=== PATIENT | male | born 1975 | race Caucasian/White ===

== ENCOUNTER 2017-01-22 16:33 | Emergency (ER) | payer OTHER ==
[~2017-01-22] VITALS: Ht 170.2 cm; Wt 86.6 kg
[2017-01-22] MEDS ORDERED: SODIUM CHLORIDE 0.9% 1,000 ML IV ONE (16:49)
[2017-01-22] MEDS ORDERED: ZOLP10TA PO (16:57)
[2017-01-22] MEDS ORDERED: SODIUM CHLORIDE 0.9% 1,000ML IVBOLUS ONE (17:00)
[2017-01-22] MEDS ORDERED: ONDANSETRON 2MG/ML, 2ML IVPush ONE (17:00)
[2017-01-22] MEDS ORDERED: HYDROmorphone 1 MG/ML, 1ML ONE ×2 (17:19→18:23)
[2017-01-22] MEDS ORDERED: ONDANSETRON 2MG/ML, 2ML ONE (17:20)
[2017-01-22] MEDS: HYDROmorphone 1 MG/ML, 1ML IVPush PRN ×2 (17:29→18:29)
[2017-01-22 17:36] LABS: ASPARTATE AMINO TRANSFERASE 22 U/L (15-37); BLOOD UREA NITROGEN 12 mg/dL (7-18)
[2017-01-22] MEDS ORDERED: OMNIPAQUE 350 MG/ML, 100ML BOTTLE ONE (18:29)
[2017-01-22 18:30] VITALS: BP 113/71
== END 2017-01-22 19:04 | disposition home or self-care (01) ==
LOC: ED 18:00
DX: R10.32 Left lower quadrant pain (principal); R11.2 Nausea with vomiting, unspecified; R19.7 Diarrhea, unspecified; Z90.49 Acquired absence of other specified parts of digestive tract
CPT/HCPCS: 36415; 74177; 80053; 81003; 83690; 85025; 96361; 96374; 96375; 96376; 99285; J1170; J2405; J7030; Q9967

== ENCOUNTER 2017-01-29 13:53 | Emergency (ER) | payer OTHER ==
[~2017-01-29] VITALS: Ht 152.4 cm; Wt 88.6 kg
[~2017-01-29 13:53] MED LIST: ZOLP10TA PO
[2017-01-29 13:58] VITALS: BP 125/84
[2017-01-29 15:20] LABS: HEMATOCRIT 48.3 % (39.2-51.8); HEMOGLOBIN 16.1 g/dL (13.7-18.0); WHITE BLOOD COUNT 5.1 x10^3/uL (3.4-10)
[2017-01-29 15:32] LABS: BLOOD UREA NITROGEN 10 mg/dL (7-18)
[2017-01-29 15:45] LABS: ASPARTATE AMINO TRANSFERASE 19 U/L (15-37)
== END 2017-01-29 16:27 | disposition home or self-care (01) ==
LOC: ED 15:42
DX: R10.32 Left lower quadrant pain (principal); R10.12 Left upper quadrant pain
CPT/HCPCS: 36415; 80053; 83690; 85025; 99284

== ENCOUNTER 2017-04-03 20:54 | Inpatient (IN) | payer OTHER ==
[~2017-04-03] VITALS: Ht 170.2 cm; Wt 88.0 kg
[2017-04-03] MEDS ORDERED: HYDROmorphone 1 MG/ML, 1ML ONE ×2 (21:11→21:27)
[2017-04-03] MEDS ORDERED: ONDANSETRON 2MG/ML, 2ML ONE ×2 (21:12→22:24)
[2017-04-03] MEDS: HYDROmorphone 1 MG/ML, 1ML IVPush PRN ×2 (21:16→21:29)
[2017-04-03] MEDS ORDERED: ONDANSETRON 2MG/ML, 2ML IVPush ONE (21:30)
[2017-04-03] MEDS ORDERED: CEFAZOLIN PMX 1GM/50ML 50 ML ONE (21:51)
[2017-04-03] MEDS ORDERED: CEFAZOLIN PMX 1GM/50ML 50 ML IV ONE (22:00)
[2017-04-03] MEDS ORDERED: FENTANYL PF 100 MCG/2ML ONE ×2 (22:22→22:23)
[2017-04-03] MEDS ORDERED: LIDOCAINE GEL 2%, 5ML ONE (22:22)
[2017-04-03] MEDS ORDERED: MIDAZOLAM 1 MG/ML, 2ML ONE (22:22)
[2017-04-03] MEDS ORDERED: PROPOFOL 10 MG/ML, 20ML ONE (22:24)
[2017-04-03] MEDS ORDERED: CEFAZOLIN 1,000 MG ONE (22:24)
[2017-04-03] MEDS ORDERED: DEXAMETHASONE 4 MG/ML, 1ML ONE (22:24)
[2017-04-03] MEDS ORDERED: BUPIVACAINE/PF 0.25% ONE (22:34)
[2017-04-03] MEDS ORDERED: PHENYLEPHRINE 10 MG/ML ONE (22:36)
[2017-04-03] MEDS ORDERED: SUCCINYLCHOLINE 20 MG/ML, 10ML ONE (22:36)
[2017-04-03] MEDS ORDERED: EPHEDRINE 50 MG/ML, 1ML ONE (22:57)
[2017-04-03] MEDS ORDERED: BUPIVACAINE/PF 0.25% INFIL ONE (23:01)
[2017-04-03] MEDS ORDERED: ACETAMINOPHEN 325 MG TABLET PO PRN (23:30)
[2017-04-03] MEDS ORDERED: LABETALOL 5MG/ML, 20ML IV PRN (23:30)
[2017-04-03] MEDS ORDERED: ONDANSETRON 2MG/ML, 2ML IVPush PRN (23:30)
[2017-04-03] MEDS ORDERED: OXYcodone 5 MG/5 ML ORAL.SOL UDC PO PRN (23:30)
[2017-04-03] MEDS ORDERED: PROMETHAZINE 25 MG/ML, 1ML IV PRN (23:30)
[2017-04-03] MEDS ORDERED: HYDROmorphone 1 MG/ML, 1ML IV PRN (23:30)
[2017-04-03] MEDS ORDERED: hydrALAzine 20 MG/ML, 1ML IV PRN (23:30)
[2017-04-03] MEDS ORDERED: MIDAZOLAM 1 MG/ML, 2ML IV PRN (23:30)
[2017-04-03] MEDS ORDERED: LORazepam 2 MG/ML, 1ML IVPush PRN (23:30)
[2017-04-03] MEDS ORDERED: DIAZEPAM 5 MG/ML, 2ML IVPush PRN (23:30)
[2017-04-03] MEDS ORDERED: ALBUTEROL/IPRATROPIUM 2.5MG/0.5MG, 3 ML NPPB PRN (23:30)
[2017-04-03] MEDS ORDERED: THROMBIN 20,000 UNIT VIAL TP ONE ×2 (23:43→23:50)
[2017-04-04] MEDS ORDERED: ACETAMINOPHEN 650 MG/20.3 ML UDC ONE (00:40)
[2017-04-04] MEDS ORDERED: OXYcodone 5 MG/5 ML ORAL.SOL UDC ONE (00:40)
[2017-04-04] MEDS ORDERED: FENTANYL PF 100 MCG/2ML ONE (00:40)
[2017-04-04] MEDS: FENTANYL PF 100 MCG/2ML IV PRN ×2 (00:48→00:55)
[2017-04-04] MEDS ORDERED: HYDROmorphone 1 MG/ML, 1ML ONE (01:00)
[2017-04-04] MEDS ORDERED: ONDANSETRON 2MG/ML, 2ML IV PRN (02:00)
[2017-04-04] MEDS: morphine SULFATE 10 MG/ML, 1ML IV PRN ×4 (02:07→12:07)
[2017-04-04] MEDS: SODIUM CHLORIDE 0.9% 1,000 ML IV SCH ×4 (02:12→22:00)
[2017-04-04 02:33] VITALS: BP 115/72
[2017-04-04] MEDS: OXYcodone/APAP 5/325MG TABLET PO PRN ×4 (04:12→20:11)
[2017-04-04 05:38] LABS: HEMATOCRIT 34.7 % (39.2-51.8); HEMOGLOBIN 11.6 g/dL (13.7-18.0)
[2017-04-04 07:10] VITALS: BP 119/72
[2017-04-04] MEDS: HYDROmorphone 2 MG/ML, 1ML IVPush PRN ×3 (13:59→21:14)
[2017-04-04 14:29] VITALS: BP 103/63
[2017-04-04 19:47] VITALS: BP 99/53
[2017-04-05] MEDS: OXYcodone/APAP 5/325MG TABLET PO PRN ×4 (00:14→12:10)
[2017-04-05 01:53] VITALS: BP 100/54
[2017-04-05] MEDS: HYDROmorphone 2 MG/ML, 1ML IVPush PRN ×4 (02:03→13:04)
[2017-04-05] MEDS: SODIUM CHLORIDE 0.9% 1,000 ML IV SCH ×2 (04:40→11:20)
[2017-04-05 08:49] VITALS: BP 107/48
[2017-04-05] MEDS ORDERED: OXYC-302 PO (14:14)
[2017-04-05] MEDS ORDERED: CEPH-368 PO (14:16)
== END 2017-04-05 14:20 | disposition home or self-care (01) | DRG 581 ==
LOC: ED 21:07 → EDIP 23:15 → 4NOR 04-04 01:22 → DCLOUNGE 04-05 13:47
PROVIDERS: ADMIT Surgery Plastic and Reconstructive Surgery; ATTEND Surgery Plastic and Reconstructive Surgery
PROC: 03QF0ZZ Repair Left Hand Artery, Open Approach (ICD-10-PCS; principal; 2017-04-03 22:45)
DX: S60.945A Unspecified superficial injury of left ring finger, initial encounter (principal); Y28.1XXA Contact with knife, undetermined intent, initial encounter; Y93.89 Activity, other specified; Y92.098 Other place in other non-institutional residence as the place of occurrence of the external cause; Y99.8 Other external cause status
CPT/HCPCS: 36415; 85014; 85018; 96365; 96375; J0690; J1100; J1170; J2250; J2405; J2704; J3010; J3490; J0330; J2270; J2370; J7030

== ENCOUNTER 2017-04-07 10:01 | Day surgery (SDC) | payer OTHER ==
[~2017-04-07] VITALS: Ht 170.2 cm; Wt 90.6 kg
[~2017-04-07 10:01] MED LIST changes: +CEPH-368 PO; +OXYC-302 PO
[2017-04-07] MEDS ORDERED: LIDOCAINE 1%, 2ML ONE (10:22)
[2017-04-07 10:24] VITALS: BP 144/68
[2017-04-07] MEDS ORDERED: LACTATED RINGERS 1,000 ML IV SCH (10:29)
[2017-04-07] MEDS ORDERED: LIDOCAINE 1%, 2ML SQ PRN (10:30)
[2017-04-07] MEDS ORDERED: CEPH-376 PO (10:32)
[2017-04-07] MEDS ORDERED: OXYC-302 PO (10:32)
[2017-04-07] MEDS ORDERED: ONDANSETRON 2MG/ML, 2ML ONE ×3 (11:11→14:10)
[2017-04-07] MEDS ORDERED: ONDANSETRON 2MG/ML, 2ML IVPush ONE (11:30)
[2017-04-07] MEDS ORDERED: BUPIVACAINE/PF 0.5% ONE (11:42)
[2017-04-07] MEDS ORDERED: LIDOCAINE/PF 1%, 30ML ONE (11:42)
[2017-04-07] MEDS ORDERED: EPINEPHRINE 1 MG/ML, 1ML ONE ×2 (11:42→11:43)
[2017-04-07] MEDS ORDERED: BACITRACIN 50,000 UNIT ONE (11:42)
[2017-04-07] MEDS ORDERED: BACITRACIN ZINC OINT 500U/GM, 0.9 GM ONE (11:42)
[2017-04-07] MEDS ORDERED: FENTANYL PF 250 MCG/5ML ONE (11:44)
[2017-04-07] MEDS ORDERED: MIDAZOLAM 1 MG/ML, 2ML ONE (11:44)
[2017-04-07] MEDS ORDERED: PROPOFOL 10 MG/ML, 20ML ONE ×3 (11:45→13:10)
[2017-04-07] MEDS ORDERED: LIDOCAINE GEL 2%, 5ML ONE (11:45)
[2017-04-07] MEDS ORDERED: DEXAMETHASONE 4 MG/ML, 1ML ONE (11:45)
[2017-04-07] MEDS ORDERED: SUCCINYLCHOLINE 20 MG/ML, 10ML ONE (11:45)
[2017-04-07] MEDS ORDERED: CEFAZOLIN 1,000 MG ONE (12:26)
[2017-04-07] MEDS ORDERED: KETAMINE 10 MG/ML, 20ML ONE (12:29)
[2017-04-07] MEDS ORDERED: HYDROmorphone 1 MG/ML, 1ML ONE (12:57)
[2017-04-07] MEDS ORDERED: ACETAMINOPHEN 325 MG TABLET PO PRN (13:00)
[2017-04-07] MEDS ORDERED: OXYcodone 5 MG/5 ML ORAL.SOL UDC PO PRN (13:00)
[2017-04-07] MEDS ORDERED: EPHEDRINE 50 MG/ML, 1ML IVPush PRN (13:00)
[2017-04-07] MEDS ORDERED: ONDANSETRON 2MG/ML, 2ML IVPush PRN (13:00)
[2017-04-07] MEDS ORDERED: BALANCED SALT OPHTH IRRIG SOLN 18ML ONE (13:00)
[2017-04-07] MEDS ORDERED: MIDAZOLAM 1 MG/ML, 2ML IV PRN (13:00)
[2017-04-07] MEDS ORDERED: LABETALOL 5MG/ML, 20ML IV PRN (13:00)
[2017-04-07] MEDS ORDERED: PROMETHAZINE 25 MG/ML, 1ML IV PRN (13:00)
[2017-04-07] MEDS: FENTANYL PF 100 MCG/2ML IV PRN ×3 (13:32→14:24)
[2017-04-07] MEDS ORDERED: ACETAMINOPHEN 650 MG/20.3 ML UDC ONE (13:48)
[2017-04-07] MEDS ORDERED: OXYcodone 5 MG/5 ML ORAL.SOL UDC ONE ×2 (13:48)
[2017-04-07] MEDS ORDERED: FENTANYL PF 100 MCG/2ML ONE ×2 (13:48→14:22)
[2017-04-07] MEDS ORDERED: HYDROmorphone 2 MG/ML, 1ML ONE (14:00)
[2017-04-07] MEDS: HYDROmorphone 1 MG/ML, 1ML IV PRN ×4 (14:01→14:40)
== END 2017-04-07 15:45 ==
LOC: OUT 10:01
PROVIDERS: ATTEND Orthopaedic Surgery
DX: S64.495A Injury of digital nerve of left ring finger, initial encounter (principal); Z91.09 Other allergy status, other than to drugs and biological substances; Z88.8 Allergy status to other drugs, medicaments and biological substances; Z87.39 Personal history of other diseases of the musculoskeletal system and connective tissue; X58.XXXA Exposure to other specified factors, initial encounter; Y93.89 Activity, other specified; Y92.89 Other specified places as the place of occurrence of the external cause; Y99.8 Other external cause status
CPT/HCPCS: 64831; J0171; J0330; J0690; J1100; J1170; J2250; J2405; J2704; J3010; J3490; J7120

== ENCOUNTER 2017-04-09 18:11 | Emergency (ER) | payer OTHER ==
[~2017-04-09] VITALS: Ht 152.4 cm; Wt 92.1 kg
[~2017-04-09 18:11] MED LIST changes: +CEPH-376 PO
[2017-04-09 18:30] VITALS: BP 134/83
[2017-04-09 19:24] LABS: HEMOGLOBIN 11.3 g/dL (13.7-18.0); WHITE BLOOD COUNT 4.7 x10^3/uL (3.4-10)
[2017-04-09] MEDS ORDERED: ONDANSETRON 2MG/ML, 2ML IVPush ONE (19:30)
[2017-04-09] MEDS ORDERED: SODIUM CHLORIDE FLUSH 10ML SYR IVF ONE (19:30)
[2017-04-09] MEDS ORDERED: HYDROmorphone 1 MG/ML, 1ML IVPush PRN (19:30)
[2017-04-09 19:35] LABS: BLOOD UREA NITROGEN 13 mg/dL (7-18)
[2017-04-09] MEDS ORDERED: HYDROmorphone 1 MG/ML, 1ML ONE ×2 (20:00→21:06)
[2017-04-09] MEDS ORDERED: ONDANSETRON 2MG/ML, 2ML ONE (20:00)
[2017-04-09] MEDS ORDERED: KETOROLAC 30 MG/1 ML IM ONE (21:00)
[2017-04-09] MEDS ORDERED: HYDROmorphone 1 MG/ML, 1ML IM PRN (21:00)
[2017-04-09] MEDS ORDERED: KETOROLAC 30 MG/1 ML ONE (21:06)
== END 2017-04-09 21:34 | disposition home or self-care (01) ==
LOC: ED 19:38
DX: M79.642 Pain in left hand (principal)
CPT/HCPCS: 36415; 80048; 82040; 83605; 84145; 85025; 96372; 96374; 99284; J1170; J1885

== ENCOUNTER 2017-05-12 17:23 | Emergency (ER) | payer OTHER ==
[~2017-05-12] VITALS: Ht 167.6 cm; Wt 91.3 kg
[2017-05-12] MEDS ORDERED: LIDOCAINE 2%, 20ML SQ ONE (18:30)
[2017-05-12] MEDS ORDERED: LIDOCAINE 1%, 20ML ONE (18:36)
[2017-05-12] MEDS ORDERED: HYDROcodone/APAP 5/325 TABLET PO ONE (18:37)
[2017-05-12] MEDS ORDERED: HYDROcodone/APAP 5/325 TABLET ONE (18:53)
[2017-05-12] MEDS ORDERED: BACITRACIN ZINC OINT 500U/GM, 0.9 GM ONE (19:47)
[2017-05-12 20:01] VITALS: BP 113/79
== END 2017-05-12 20:03 | disposition home or self-care (01) ==
LOC: ED 18:03
DX: S81.012A Laceration without foreign body, left knee, initial encounter (principal); F43.10 Post-traumatic stress disorder, unspecified; Z90.49 Acquired absence of other specified parts of digestive tract; X58.XXXA Exposure to other specified factors, initial encounter; Y93.89 Activity, other specified; Y92.89 Other specified places as the place of occurrence of the external cause; Y99.8 Other external cause status
CPT/HCPCS: 13121; 99285

== ENCOUNTER 2017-05-17 05:59 | Inpatient (IN) | payer OTHER ==
[~2017-05-17] VITALS: Ht 170.2 cm; Wt 92.5 kg
[2017-05-17 07:01] VITALS: BP 123/86
[2017-05-17] MEDS ORDERED: SULF1TAB24 PO (07:14)
[2017-05-17] MEDS ORDERED: LACTATED RINGERS 1,000 ML IV SCH (07:16)
[2017-05-17] MEDS ORDERED: FENTANYL PF 100 MCG/2ML ONE ×3 (08:00→09:10)
[2017-05-17] MEDS ORDERED: PROPOFOL 10 MG/ML, 50ML ONE (08:06)
[2017-05-17] MEDS ORDERED: DEXAMETHASONE 4 MG/ML, 1ML ONE (08:06)
[2017-05-17] MEDS ORDERED: ONDANSETRON 2MG/ML, 2ML ONE (08:06)
[2017-05-17] MEDS ORDERED: CEFAZOLIN 1,000 MG ONE (08:06)
[2017-05-17] MEDS ORDERED: NEOSPORIN OINT, 15GM ONE (08:24)
[2017-05-17] MEDS ORDERED: OXYcodone 5 MG/5 ML ORAL.SOL UDC PO PRN (08:30)
[2017-05-17] MEDS ORDERED: ONDANSETRON 2MG/ML, 2ML IVPush PRN (08:30)
[2017-05-17] MEDS ORDERED: HYDROmorphone 1 MG/ML, 1ML ONE ×2 (08:48→09:10)
[2017-05-17] MEDS ORDERED: OXYcodone 5 MG/5 ML ORAL.SOL UDC ONE (08:48)
[2017-05-17] MEDS: HYDROmorphone 1 MG/ML, 1ML IV PRN ×4 (08:53→09:26)
[2017-05-17] MEDS: FENTANYL PF 100 MCG/2ML IV PRN ×2 (09:11→09:15)
[2017-05-17 10:25] VITALS: BP 109/59
[2017-05-17] MEDS ORDERED: PHARMACOKINETIC MONITORING MC PRN (11:00)
[2017-05-17] MEDS: morphine SULFATE 10 MG/ML, 1ML IV PRN ×4 (11:06→20:51)
[2017-05-17] MEDS: VANCOMYCIN 1,800 MG in SODIUM CHLORIDE 0.9% 250 ML IV SCH (11:06)
[2017-05-17] MEDS: OXYcodone/APAP 10/325MG TABLET PO PRN ×3 (12:44→21:45)
[2017-05-17 14:13] VITALS: BP 102/66
[2017-05-17] MEDS: CEFAZOLIN PMX 1GM/50ML 50 ML IVPB SCH ×2 (15:51→23:28)
[2017-05-17] MEDS: ONDANSETRON 2MG/ML, 2ML IV PRN (17:22)
[2017-05-17 19:19] VITALS: BP 105/62
[2017-05-17 23:14] VITALS: BP 107/64
[2017-05-18] MEDS: VANCOMYCIN 1,800 MG in SODIUM CHLORIDE 0.9% 250 ML IV SCH ×2 (00:24→11:01)
[2017-05-18] MEDS: ONDANSETRON 2MG/ML, 2ML IV PRN (00:24)
[2017-05-18] MEDS: morphine SULFATE 10 MG/ML, 1ML IV PRN ×4 (00:29→12:08)
[2017-05-18] MEDS: OXYcodone/APAP 10/325MG TABLET PO PRN ×3 (01:49→11:01)
[2017-05-18 03:55] VITALS: BP 109/65
[2017-05-18 04:21] VITALS: BP 109/65
[2017-05-18 06:52] VITALS: BP 97/59
[2017-05-18] MEDS: CEFAZOLIN PMX 1GM/50ML 50 ML IVPB SCH (07:44)
[2017-05-18 13:20] VITALS: BP 107/56
== END 2017-05-18 15:11 | disposition home or self-care (01) | DRG 501 ==
LOC: OUT 05:59 → ORIP 08:56 → 4NOR 09:59
PROVIDERS: ADMIT Orthopaedic Surgery; ATTEND Orthopaedic Surgery
PROC: 0MBP0ZZ Excision of Left Knee Bursa and Ligament, Open Approach (ICD-10-PCS; principal; 2017-05-17 08:00)
DX: M70.42 Prepatellar bursitis, left knee (principal); T81.30XA Disruption of wound, unspecified, initial encounter; Y93.89 Activity, other specified
CPT/HCPCS: 87070; 87075; 87077; 87186; 87205; J0690; J1100; J1170; J2405; J2704; J3010; J3370; J2270; J7050; J7120

== ENCOUNTER 2017-06-20 15:04 | Emergency (ER) | payer OTHER ==
[~2017-06-20] VITALS: Ht 170.2 cm; Wt 95.3 kg
[~2017-06-20 15:04] MED LIST changes: +SULF1TAB24 PO
[2017-06-20] MEDS ORDERED: SODIUM CHLORIDE 0.9% 1,000 ML IV ONE (15:25)
[2017-06-20] MEDS ORDERED: SODIUM CHLORIDE FLUSH 10ML SYR IVF ONE ×2 (15:30→18:30)
[2017-06-20] MEDS ORDERED: SODIUM CHLORIDE 0.9% 1,000ML IVBOLUS ONE (15:30)
[2017-06-20 16:22] LABS: BASOPHILS # (AUTO) 0.03 x10^3/uL (0-0.1); BASOPHILS % (AUTO) 1 % (0-1); EOSINOPHILS # (AUTO) 0.05 x10^3/uL (0-0.4); EOSINOPHILS % (AUTO) 1 % (1-7); LYMPHOCYTES # (AUTO) 1.14 x10^3/uL (1-3.4); LYMPHOCYTES % (AUTO) 22 % (22-44); MD NO; MEAN CORPUSCULAR HEMOGLOBIN 26.2 pg (27.5-34.5); MEAN CORPUSCULAR HGB CONC 32.6 g/dL (33.2-36.2); MEAN CORPUSCULAR VOLUME 80.1 fL (81-97); MEAN PLATELET VOLUME 7.5 fL (7.4-10.4); MONOCYTES # (AUTO) 0.39 x10^3/uL (0.2-0.8); MONOCYTES % (AUTO) 8 % (2-9); NEUTROPHILS # (AUTO) 3.52 x10^3/uL (1.8-6.8); NEUTROPHILS % (AUTO) 69 % (42-75); PLATELET COUNT 242 x10^3/uL (130-400); RED BLOOD COUNT 4.93 x10^6/uL (4.38-5.82); RED CELL DISTRIBUTION WIDTH 15.5 % (9.4-14.8)
[2017-06-20 16:35] LABS: ALANINE AMINOTRANSFERASE 22 U/L (12-78); ALBUMIN 3.9 g/dL (3.4-5.0); ANION GAP 7 mmol/L (5-15); CALCIUM 8.6 mg/dL (8.5-10.1); CHLORIDE 111 mmol/L (98-107); CREATININE 0.95 mg/dL (0.7-1.3)
[2017-06-20 16:37] LABS: ALKALINE PHOSPHATASE 82 U/L (45-117); BILIRUBIN,TOTAL 0.2 mg/dL (0.2-1.0); TOTAL PROTEIN 8.3 g/dL (6.4-8.2)
[2017-06-20] MEDS ORDERED: MORPHINE SULFATE 4 MG/ML, 1ML IVPush PRN (18:30)
[2017-06-20] MEDS ORDERED: KETOROLAC 30 MG/1 ML IVPush ONE (18:30)
[2017-06-20] MEDS ORDERED: ONDANSETRON 2MG/ML, 2ML IVPush ONE (18:30)
[2017-06-20] MEDS ORDERED: ONDANSETRON 2MG/ML, 2ML ONE (19:39)
[2017-06-20] MEDS ORDERED: MORPHINE SULFATE 4 MG/ML, 1ML ONE (19:39)
[2017-06-20] MEDS ORDERED: KETOROLAC 30 MG/1 ML ONE (19:39)
[2017-06-20] MEDS ORDERED: OMNIPAQUE 350 MG/ML, 100ML BOTTLE ONE (20:44)
[2017-06-20 22:20] VITALS: BP 133/78
== END 2017-06-20 22:24 | disposition home or self-care (01) ==
LOC: ED 21:25
DX: R10.32 Left lower quadrant pain (principal); Z90.49 Acquired absence of other specified parts of digestive tract; Z88.6 Allergy status to analgesic agent; Z88.5 Allergy status to narcotic agent
CPT/HCPCS: 36415; 74022; 74177; 80053; 83690; 85025; 96361; 96374; 96375; 99285; J1885; J2405; J7030; Q9967

== ENCOUNTER 2018-01-06 18:29 | Emergency (ER) | payer OTHER ==
[~2018-01-06] VITALS: Ht 152.4 cm; Wt 92.0 kg
[2018-01-06] MEDS ORDERED: SODIUM CHLORIDE 0.9% 1,000ML IVBOLUS ONE (20:30)
[2018-01-06] MEDS ORDERED: ONDANSETRON 2MG/ML, 2ML IVPush ONE (20:30)
[2018-01-06] MEDS ORDERED: ONDANSETRON 2MG/ML, 2ML ONE (20:32)
[2018-01-06] MEDS ORDERED: HYDROmorphone 2 MG/ML, 1ML ONE (20:33)
[2018-01-06] MEDS: HYDROmorphone 2 MG/ML, 1ML IVPush PRN ×2 (20:37→21:00)
[2018-01-06 20:41] LABS: BASOPHILS # (AUTO) 0.06 x10^3/uL (0-0.1); BASOPHILS % (AUTO) 1 % (0-1); EOSINOPHILS # (AUTO) 0.12 x10^3/uL (0-0.4); EOSINOPHILS % (AUTO) 1 % (1-7); LYMPHOCYTES # (AUTO) 1.65 x10^3/uL (1-3.4); LYMPHOCYTES % (AUTO) 18 % (22-44); MD NO; MEAN CORPUSCULAR HEMOGLOBIN 30.1 pg (27.5-34.5); MEAN CORPUSCULAR HGB CONC 34.4 g/dL (33.2-36.2); MEAN CORPUSCULAR VOLUME 87.6 fL (81-97); MEAN PLATELET VOLUME 7.3 fL (7.4-10.4); MONOCYTES # (AUTO) 0.76 x10^3/uL (0.2-0.8); MONOCYTES % (AUTO) 8 % (2-9); NEUTROPHILS % (AUTO) 73 % (42-75); PLATELET COUNT 261 x10^3/uL (130-400); RED BLOOD COUNT 4.74 x10^6/uL (4.38-5.82); RED CELL DISTRIBUTION WIDTH 13.6 % (9.4-14.8)
[2018-01-06 20:47] LABS: ALANINE AMINOTRANSFERASE 27 U/L (12-78); ALBUMIN 3.6 g/dL (3.4-5.0); ANION GAP 9 mmol/L (5-15); CALCIUM 8.7 mg/dL (8.5-10.1); CHLORIDE 106 mmol/L (98-107); CREATININE 0.99 mg/dL (0.7-1.3)
[2018-01-06 20:49] LABS: ALKALINE PHOSPHATASE 91 U/L (45-117); BILIRUBIN,TOTAL 0.2 mg/dL (0.2-1.0); TOTAL PROTEIN 7.9 g/dL (6.4-8.2)
[2018-01-06] MEDS ORDERED: IBUP-1484 PO (21:54)
[2018-01-06 22:44] VITALS: BP 104/62
== END 2018-01-06 22:46 | disposition home or self-care (01) ==
LOC: ED 19:30
DX: K52.9 Noninfective gastroenteritis and colitis, unspecified (principal); K51.90 Ulcerative colitis, unspecified, without complications; F43.10 Post-traumatic stress disorder, unspecified; Z90.49 Acquired absence of other specified parts of digestive tract; Z90.89 Acquired absence of other organs
CPT/HCPCS: 36415; 71045; 74177; 80053; 83605; 83690; 85025; 93005; 96361; 96374; 96375; 99285; J1170; J2405; J7030

== ENCOUNTER 2018-02-11 14:27 | Emergency (ER) | payer BC, OTHER ==
[~2018-02-11] VITALS: Ht 170.2 cm; Wt 92.4 kg
[~2018-02-11 14:27] MED LIST changes: +IBUP-1484 PO
[2018-02-11] MEDS ORDERED: SODIUM CHLORIDE FLUSH 10ML SYR IVF ONE (15:00)
[2018-02-11] MEDS ORDERED: METOCLOPRAMIDE 5 MG/ML, 2ML IVPush ONE (15:00)
[2018-02-11] MEDS ORDERED: SODIUM CHLORIDE 0.9% 1,000ML IVBOLUS ONE (15:00)
[2018-02-11] MEDS ORDERED: DIPHENHYDRAMINE 50 MG/ML, 1ML IVPush ONE (15:00)
[2018-02-11] MEDS ORDERED: ZOLP-413 PO (15:05)
[2018-02-11] MEDS ORDERED: DIPHENHYDRAMINE 50 MG/ML, 1ML ONE (15:09)
[2018-02-11] MEDS ORDERED: METOCLOPRAMIDE 5 MG/ML, 2ML ONE (15:10)
[2018-02-11] MEDS ORDERED: MORPHINE SULFATE 4 MG/ML, 1ML ONE ×2 (15:10→16:16)
[2018-02-11] MEDS: MORPHINE SULFATE 4 MG/ML, 1ML IVPush PRN ×2 (15:16→16:19)
[2018-02-11 15:30] LABS: BASOPHILS # (AUTO) 0.04 x10^3/uL (0-0.1); BASOPHILS % (AUTO) 1 % (0-1); EOSINOPHILS % (AUTO) 2 % (1-7); LYMPHOCYTES # (AUTO) 1.59 x10^3/uL (1-3.4); LYMPHOCYTES % (AUTO) 24 % (22-44); MD NO; MEAN CORPUSCULAR HEMOGLOBIN 30.1 pg (27.5-34.5); MEAN CORPUSCULAR HGB CONC 34.4 g/dL (33.2-36.2); MEAN CORPUSCULAR VOLUME 87.6 fL (81-97); MONOCYTES # (AUTO) 0.56 x10^3/uL (0.2-0.8); MONOCYTES % (AUTO) 8 % (2-9); NEUTROPHILS # (AUTO) 4.34 x10^3/uL (1.8-6.8); NEUTROPHILS % (AUTO) 65 % (42-75); PLATELET COUNT 244 x10^3/uL (130-400); RED BLOOD COUNT 4.95 x10^6/uL (4.38-5.82); RED CELL DISTRIBUTION WIDTH 14.1 % (9.4-14.8)
[2018-02-11 15:41] LABS: ALANINE AMINOTRANSFERASE 29 U/L (12-78); ALBUMIN 3.9 g/dL (3.4-5.0); ANION GAP 9 mmol/L (5-15); CALCIUM 8.5 mg/dL (8.5-10.1); CHLORIDE 106 mmol/L (98-107); CREATININE 1.09 mg/dL (0.7-1.3)
[2018-02-11 15:43] LABS: ALKALINE PHOSPHATASE 85 U/L (45-117); BILIRUBIN,TOTAL 0.5 mg/dL (0.2-1.0); TOTAL PROTEIN 8.3 g/dL (6.4-8.2)
[2018-02-11 16:02] LABS: INTERNATIONAL NORMALIZED RATIO 1.04 (0.93-1.1); PROTHROMBIN TIME 10.7 Seconds (9.6-11.5)
[2018-02-11 16:14] VITALS: BP 115/68
== END 2018-02-11 17:25 | disposition home or self-care (01) ==
LOC: ED 17:10
DX: R10.84 Generalized abdominal pain (principal); R11.2 Nausea with vomiting, unspecified; Z90.89 Acquired absence of other organs; Z90.49 Acquired absence of other specified parts of digestive tract; Z88.6 Allergy status to analgesic agent; Z88.5 Allergy status to narcotic agent
CPT/HCPCS: 36415; 80053; 83690; 85025; 85610; 85730; 96361; 96374; 96375; 96376; 99284; J1200; J2765; J7030

== ENCOUNTER 2018-03-04 22:21 | Emergency (ER) | payer BC ==
[~2018-03-04] VITALS: Ht 170.2 cm; Wt 84.0 kg
[~2018-03-04 22:21] MED LIST changes: +ZOLP-413 PO
[2018-03-04] MEDS ORDERED: MORPHINE SULFATE 4 MG/ML, 1ML ONE (23:28)
[2018-03-04] MEDS ORDERED: ONDANSETRON ODT 4 MG ONE (23:28)
[2018-03-04] MEDS ORDERED: FAMOTIDINE 20 MG/2 ML ONE (23:29)
[2018-03-04] MEDS ORDERED: ONDANSETRON ODT 4 MG PO ONE (23:30)
[2018-03-04] MEDS ORDERED: SODIUM CHLORIDE 0.9% 1,000ML IVBOLUS ONE (23:30)
[2018-03-04] MEDS ORDERED: FAMOTIDINE 20 MG/2 ML IVP ONE (23:30)
[2018-03-04] MEDS: MORPHINE SULFATE 4 MG/ML, 1ML IVPush PRN (23:35)
[2018-03-04 23:43] LABS: BASOPHILS # (AUTO) 0.04 x10^3/uL (0-0.1); BASOPHILS % (AUTO) 1 % (0-1); EOSINOPHILS % (AUTO) 2 % (1-7); LYMPHOCYTES # (AUTO) 1.69 x10^3/uL (1-3.4); LYMPHOCYTES % (AUTO) 27 % (22-44); MD NO; MEAN CORPUSCULAR HEMOGLOBIN 29.4 pg (27.5-34.5); MEAN CORPUSCULAR HGB CONC 33.8 g/dL (33.2-36.2); MEAN PLATELET VOLUME 7.4 fL (7.4-10.4); MONOCYTES # (AUTO) 0.57 x10^3/uL (0.2-0.8); MONOCYTES % (AUTO) 9 % (2-9); NEUTROPHILS # (AUTO) 3.87 x10^3/uL (1.8-6.8); NEUTROPHILS % (AUTO) 62 % (42-75); PLATELET COUNT 268 x10^3/uL (130-400); RED BLOOD COUNT 5.03 x10^6/uL (4.38-5.82); RED CELL DISTRIBUTION WIDTH 14.1 % (9.4-14.8)
[2018-03-04 23:56] LABS: ALANINE AMINOTRANSFERASE 29 U/L (12-78); ALBUMIN 3.5 g/dL (3.4-5.0); ANION GAP 6 mmol/L (5-15); CALCIUM 8.2 mg/dL (8.5-10.1); CHLORIDE 112 mmol/L (98-107); CREATININE 0.87 mg/dL (0.7-1.3)
[2018-03-04 23:58] LABS: ALKALINE PHOSPHATASE 87 U/L (45-117); BILIRUBIN,TOTAL 0.2 mg/dL (0.2-1.0); TOTAL PROTEIN 7.9 g/dL (6.4-8.2)
[2018-03-05] MEDS ORDERED: MORPHINE SULFATE 4 MG/ML, 1ML ONE (01:36)
[2018-03-05] MEDS: MORPHINE SULFATE 4 MG/ML, 1ML IVPush PRN (01:42)
[2018-03-05] MEDS ORDERED: OMNIPAQUE 350 MG/ML, 100ML BOTTLE ONE (01:47)
[2018-03-05] MEDS ORDERED: PROMETHAZINE 25 MG/ML, 1ML IM ONE (02:00)
[2018-03-05] MEDS ORDERED: MORPHINE SULFATE 4 MG/ML, 1ML IVPush PRN (02:00)
[2018-03-05] MEDS ORDERED: SODIUM CHLORIDE 0.9% 1,000ML IVBOLUS ONE (02:00)
[2018-03-05 03:16] VITALS: BP 122/80
== END 2018-03-05 03:25 | disposition home or self-care (01) ==
LOC: ED 03-05 00:38
DX: R10.84 Generalized abdominal pain (principal); E86.0 Dehydration; R11.2 Nausea with vomiting, unspecified; R19.7 Diarrhea, unspecified; Z90.49 Acquired absence of other specified parts of digestive tract; Z90.89 Acquired absence of other organs
CPT/HCPCS: 36415; 74177; 80053; 83690; 85025; 96361; 96372; 96374; 96375; 96376; 99285; J2550; J7030; Q0162; Q9967; S0028

== ENCOUNTER 2018-03-09 21:30 | Inpatient (IN) | payer BC ==
[~2018-03-09] VITALS: Ht 170.2 cm; Wt 92.1 kg
[2018-03-09] MEDS ORDERED: BENTYL (22:04)
[2018-03-09 22:20] LABS: MICROSCOPIC NOT IND
[2018-03-09 22:26] LABS: BASOPHILS # (AUTO) 0.04 x10^3/uL (0-0.1); BASOPHILS % (AUTO) 1 % (0-1); EOSINOPHILS # (AUTO) 0.04 x10^3/uL (0-0.4); EOSINOPHILS % (AUTO) 1 % (1-7); LYMPHOCYTES # (AUTO) 1.14 x10^3/uL (1-3.4); LYMPHOCYTES % (AUTO) 18 % (22-44); MD NO; MEAN CORPUSCULAR HGB CONC 33.9 g/dL (33.2-36.2); MEAN CORPUSCULAR VOLUME 88.5 fL (81-97); MEAN PLATELET VOLUME 7.4 fL (7.4-10.4); MONOCYTES # (AUTO) 0.44 x10^3/uL (0.2-0.8); MONOCYTES % (AUTO) 7 % (2-9); NEUTROPHILS # (AUTO) 4.64 x10^3/uL (1.8-6.8); NEUTROPHILS % (AUTO) 74 % (42-75); PLATELET COUNT 274 x10^3/uL (130-400); RED CELL DISTRIBUTION WIDTH 13.7 % (9.4-14.8)
[2018-03-09 22:26] LABS: CULTURE INDICATED? NO
[2018-03-09] MEDS ORDERED: ONDANSETRON ODT 4 MG ONE (22:28)
[2018-03-09 22:55] LABS: ALBUMIN 3.9 g/dL (3.4-5.0)
[2018-03-09] MEDS ORDERED: KETOROLAC 30 MG/1 ML IM ONE (23:00)
[2018-03-09] MEDS ORDERED: KETOROLAC 30 MG/1 ML ONE (23:01)
[2018-03-09 23:11] LABS: ALANINE AMINOTRANSFERASE 28 U/L (12-78); ALKALINE PHOSPHATASE 86 U/L (45-117); ANION GAP 12 mmol/L (5-15); CALCIUM 8.8 mg/dL (8.5-10.1); CHLORIDE 107 mmol/L (98-107); CREATININE 1.08 mg/dL (0.7-1.3); TOTAL PROTEIN 8.3 g/dL (6.4-8.2); TROPONIN I < 0.015 ng/mL (0.000-0.045)
[2018-03-09 23:18] LABS: BILIRUBIN,TOTAL 0.6 mg/dL (0.2-1.0)
[2018-03-09] MEDS ORDERED: MORPHINE SULFATE 4 MG/ML, 1ML IVPush STA (23:29)
[2018-03-10] MEDS ORDERED: PROMETHAZINE 25 MG/ML, 1ML IM PRN
[2018-03-10] MEDS ORDERED: ACETAMINOPHEN 325 MG TABLET PO PRN
[2018-03-10] MEDS ORDERED: POLYETHYLENE GLYCOL 17 GM PACKET PO PRN
[2018-03-10] MEDS ORDERED: ZOLPIDEM 5MG TABLET PO PRN
[2018-03-10] MEDS ORDERED: ONDANSETRON ODT 4 MG PO PRN
[2018-03-10] MEDS ORDERED: hydrALAzine 20 MG/ML, 1ML IVPush PRN
[2018-03-10] MEDS ORDERED: NITROGLYCERIN 0.4 MG BOTTLE (25 TABS) SL PRN
[2018-03-10] MEDS ORDERED: ONDANSETRON 2MG/ML, 2ML IVPush PRN
[2018-03-10 00:03] VITALS: BP 151/93
[2018-03-10] MEDS: SODIUM CHLORIDE 0.9% 1,000 ML IV SCH ×2 (00:30→10:24)
[2018-03-10] MEDS: morphine SULFATE 10 MG/ML, 1ML IVPush PRN ×5 (00:30→11:51)
[2018-03-10] MEDS ORDERED: HEPARIN 5,000 UNITS/ML, 1ML SQ SCH (01:00)
[2018-03-10 02:06] VITALS: BP 145/87
[2018-03-10 05:12] LABS: BASOPHILS # (AUTO) 0.05 x10^3/uL (0-0.1); BASOPHILS % (AUTO) 1 % (0-1); EOSINOPHILS % (AUTO) 2 % (1-7); LYMPHOCYTES # (AUTO) 1.45 x10^3/uL (1-3.4); LYMPHOCYTES % (AUTO) 27 % (22-44); MD NO; MEAN CORPUSCULAR HEMOGLOBIN 29.9 pg (27.5-34.5); MEAN CORPUSCULAR HGB CONC 33.7 g/dL (33.2-36.2); MEAN CORPUSCULAR VOLUME 88.6 fL (81-97); MEAN PLATELET VOLUME 7.5 fL (7.4-10.4); MONOCYTES # (AUTO) 0.46 x10^3/uL (0.2-0.8); MONOCYTES % (AUTO) 9 % (2-9); NEUTROPHILS # (AUTO) 3.24 x10^3/uL (1.8-6.8); NEUTROPHILS % (AUTO) 61 % (42-75); PLATELET COUNT 234 x10^3/uL (130-400); RED BLOOD COUNT 4.74 x10^6/uL (4.38-5.82); RED CELL DISTRIBUTION WIDTH 14.2 % (9.4-14.8)
[2018-03-10 05:50] LABS: CHOL/HDL RATIO 5.2; CHOLESTEROL, TOTAL 166 mg/dL (140-239); HDL CHOL % 19 % (26-37); HDL CHOLESTEROL (DIRECT) 32 mg/dL (40-60); LDL CHOLESTEROL,CALCULATED 69 mg/dL (54-169); LDL/HDL RATIO 2.2 (0.5-3.0); TRIGLYCERIDES 323 mg/dL (50-200); TROPONIN I < 0.015 ng/mL (0.000-0.045); VLDL CHOLESTEROL 65 mg/dL (0-25)
[2018-03-10 07:01] VITALS: BP 142/70
[2018-03-10 08:09] VITALS: BP 114/71
[2018-03-10] MEDS ORDERED: REGADENOSON 0.4 MG/5 ML SYRINGE ONE (08:39)
[2018-03-10 14:18] VITALS: BP 113/65
== END 2018-03-10 15:08 | disposition home or self-care (01) | DRG 392 ==
LOC: ED 22:08 → EDIP 23:29 → 5SO 23:59
PROVIDERS: ADMIT Hospitalist; ATTEND Hospitalist
DX: R10.32 Left lower quadrant pain (principal); E78.1 Pure hyperglyceridemia; G89.29 Other chronic pain; R07.9 Chest pain, unspecified; F43.10 Post-traumatic stress disorder, unspecified; Z90.49 Acquired absence of other specified parts of digestive tract; Z88.6 Allergy status to analgesic agent; Z88.8 Allergy status to other drugs, medicaments and biological substances; Z72.89 Other problems related to lifestyle; Z82.49 Family history of ischemic heart disease and other diseases of the circulatory system
CPT/HCPCS: 36415; 71045; 78452; 80053; 80061; 81003; 83690; 84484; 85025; 93005; 93017; 96372; 99285; G0378; J1644; J1885; J2785; Q0162; A9502; C9898; J2270; J7030

== ENCOUNTER 2018-03-22 21:50 | Emergency (ER) | payer BC, OTHER ==
[~2018-03-22] VITALS: Ht 170.2 cm; Wt 91.4 kg
[~2018-03-22 21:50] MED LIST changes: +BENTYL
[2018-03-22] MEDS ORDERED: DIPHENHYDRAMINE 25 MG CAPSULE PO ONE (22:30)
[2018-03-22] MEDS ORDERED: KETOROLAC 30 MG/1 ML IM ONE (22:30)
[2018-03-22 22:32] LABS: CULTURE INDICATED? NO; MICROSCOPIC NOT IND
[2018-03-22] MEDS ORDERED: KETOROLAC 30 MG/1 ML ONE (22:43)
[2018-03-22] MEDS ORDERED: DIPHENHYDRAMINE 25 MG CAPSULE ONE (22:43)
[2018-03-22 23:00] LABS: BASOPHILS # (AUTO) 0.04 x10^3/uL (0-0.1); BASOPHILS % (AUTO) 1 % (0-1); EOSINOPHILS # (AUTO) 0.07 x10^3/uL (0-0.4); EOSINOPHILS % (AUTO) 1 % (1-7); LYMPHOCYTES # (AUTO) 1.31 x10^3/uL (1-3.4); LYMPHOCYTES % (AUTO) 21 % (22-44); MD NO; MEAN CORPUSCULAR HGB CONC 34.2 g/dL (33.2-36.2); MEAN CORPUSCULAR VOLUME 87.7 fL (81-97); MEAN PLATELET VOLUME 7.7 fL (7.4-10.4); MONOCYTES # (AUTO) 0.33 x10^3/uL (0.2-0.8); MONOCYTES % (AUTO) 5 % (2-9); NEUTROPHILS # (AUTO) 4.37 x10^3/uL (1.8-6.8); NEUTROPHILS % (AUTO) 72 % (42-75); PLATELET COUNT 236 x10^3/uL (130-400); RED BLOOD COUNT 4.95 x10^6/uL (4.38-5.82); RED CELL DISTRIBUTION WIDTH 14.4 % (9.4-14.8)
[2018-03-22 23:11] LABS: ALANINE AMINOTRANSFERASE 25 U/L (12-78); ALBUMIN 3.5 g/dL (3.4-5.0); ANION GAP 10 mmol/L (5-15); CHLORIDE 111 mmol/L (98-107); CREATININE 0.88 mg/dL (0.7-1.3)
[2018-03-22 23:13] LABS: ALKALINE PHOSPHATASE 82 U/L (45-117); BILIRUBIN,TOTAL 0.4 mg/dL (0.2-1.0); TOTAL PROTEIN 7.3 g/dL (6.4-8.2)
[2018-03-22 23:50] VITALS: BP 132/80
== END 2018-03-23 00:02 | disposition home or self-care (01) ==
LOC: ED 22:06
DX: R10.9 Unspecified abdominal pain (principal); G89.29 Other chronic pain; M54.9 Dorsalgia, unspecified
CPT/HCPCS: 36415; 80053; 81003; 85025; 96372; 99284; J1885; Q0163

== ENCOUNTER 2018-03-30 21:18 | Emergency (ER) | payer OTHER ==
[~2018-03-30] VITALS: Ht 170.2 cm; Wt 91.2 kg
[2018-03-30 23:21] LABS: MICROSCOPIC INDICATED
[2018-03-30 23:26] LABS: CULTURE INDICATED? NO
[2018-03-30] MEDS ORDERED: ONDANSETRON 2MG/ML, 2ML IVPush ONE (23:30)
[2018-03-30] MEDS ORDERED: KETOROLAC 30 MG/1 ML IVPush ONE (23:30)
[2018-03-30] MEDS ORDERED: SODIUM CHLORIDE 0.9% 1,000ML IVBOLUS ONE (23:30)
[2018-03-30 23:35] LABS: BASOPHILS # (AUTO) 0.06 x10^3/uL (0-0.1); BASOPHILS % (AUTO) 1 % (0-1); EOSINOPHILS # (AUTO) 0.08 x10^3/uL (0-0.4); EOSINOPHILS % (AUTO) 1 % (1-7); LYMPHOCYTES # (AUTO) 1.56 x10^3/uL (1-3.4); LYMPHOCYTES % (AUTO) 20 % (22-44); MD NO; MEAN CORPUSCULAR HEMOGLOBIN 29.7 pg (27.5-34.5); MEAN CORPUSCULAR HGB CONC 33.7 g/dL (33.2-36.2); MEAN CORPUSCULAR VOLUME 88.3 fL (81-97); MEAN PLATELET VOLUME 7.5 fL (7.4-10.4); MONOCYTES # (AUTO) 0.56 x10^3/uL (0.2-0.8); MONOCYTES % (AUTO) 7 % (2-9); NEUTROPHILS # (AUTO) 5.52 x10^3/uL (1.8-6.8); NEUTROPHILS % (AUTO) 71 % (42-75); PLATELET COUNT 190 x10^3/uL (130-400); RED BLOOD COUNT 5.15 x10^6/uL (4.38-5.82)
[2018-03-30 23:45] LABS: ALANINE AMINOTRANSFERASE 23 U/L (12-78); ALBUMIN 3.8 g/dL (3.4-5.0); ANION GAP 13 mmol/L (5-15); CALCIUM 8.5 mg/dL (8.5-10.1); CHLORIDE 107 mmol/L (98-107); CREATININE 0.86 mg/dL (0.7-1.3)
[2018-03-30 23:47] LABS: ALKALINE PHOSPHATASE 84 U/L (45-117); BILIRUBIN,TOTAL 0.6 mg/dL (0.2-1.0); TOTAL PROTEIN 8.1 g/dL (6.4-8.2)
[2018-03-31] MEDS ORDERED: ONDANSETRON 2MG/ML, 2ML ONE (00:02)
[2018-03-31] MEDS ORDERED: KETOROLAC 30 MG/1 ML ONE (00:02)
[2018-03-31 00:29] VITALS: BP 134/78
== END 2018-03-31 00:31 | disposition home or self-care (01) ==
LOC: ED 03-31 00:25
DX: R10.9 Unspecified abdominal pain (principal); Z90.49 Acquired absence of other specified parts of digestive tract
CPT/HCPCS: 36415; 76770; 80053; 81001; 85025; 96374; 96375; 99285; J1885; J2405; J7030

== ENCOUNTER 2018-04-16 10:06 | Emergency (ER) | payer BC, OTHER ==
[~2018-04-16] VITALS: Ht 170.2 cm; Wt 91.7 kg
[2018-04-16] MEDS ORDERED: MORPHINE SULFATE 4 MG/ML, 1ML IVPush ONE (11:30)
[2018-04-16] MEDS ORDERED: METOCLOPRAMIDE 5 MG/ML, 2ML IVPush ONE (11:30)
[2018-04-16] MEDS ORDERED: SODIUM CHLORIDE FLUSH 10ML SYR IVF ONE (11:30)
[2018-04-16 11:56] LABS: BASOPHILS # (AUTO) 0.05 x10^3/uL (0-0.1); BASOPHILS % (AUTO) 1 % (0-1); EOSINOPHILS # (AUTO) 0.03 x10^3/uL (0-0.4); EOSINOPHILS % (AUTO) 1 % (1-7); LYMPHOCYTES # (AUTO) 1.03 x10^3/uL (1-3.4); LYMPHOCYTES % (AUTO) 21 % (22-44); MD NO; MEAN CORPUSCULAR HEMOGLOBIN 29.3 pg (27.5-34.5); MEAN CORPUSCULAR HGB CONC 33.2 g/dL (33.2-36.2); MEAN CORPUSCULAR VOLUME 88.1 fL (81-97); MEAN PLATELET VOLUME 7.7 fL (7.4-10.4); MONOCYTES # (AUTO) 0.32 x10^3/uL (0.2-0.8); MONOCYTES % (AUTO) 7 % (2-9); NEUTROPHILS # (AUTO) 3.55 x10^3/uL (1.8-6.8); NEUTROPHILS % (AUTO) 71 % (42-75); PLATELET COUNT 214 x10^3/uL (130-400); RED BLOOD COUNT 5.27 x10^6/uL (4.38-5.82); RED CELL DISTRIBUTION WIDTH 14.1 % (9.4-14.8)
[2018-04-16 12:06] LABS: INTERNATIONAL NORMALIZED RATIO 1.02 (0.93-1.1); PROTHROMBIN TIME 10.5 Seconds (9.6-11.5)
[2018-04-16 12:10] LABS: CHLORIDE 109 mmol/L (98-107)
[2018-04-16 12:11] LABS: ALANINE AMINOTRANSFERASE 25 U/L (12-78); ALBUMIN 3.7 g/dL (3.4-5.0); ANION GAP 8 mmol/L (5-15); CALCIUM 8.6 mg/dL (8.5-10.1); CREATININE 0.86 mg/dL (0.7-1.3)
[2018-04-16 12:13] LABS: ALKALINE PHOSPHATASE 76 U/L (45-117); BILIRUBIN,TOTAL 0.6 mg/dL (0.2-1.0); TOTAL PROTEIN 7.8 g/dL (6.4-8.2)
[2018-04-16] MEDS ORDERED: MORPHINE SULFATE 4 MG/ML, 1ML ONE (12:32)
[2018-04-16] MEDS ORDERED: METOCLOPRAMIDE 5 MG/ML, 2ML ONE (12:32)
[2018-04-16] MEDS ORDERED: DEXAMETHASONE 4 MG/ML, 1ML IVPush ONE (13:30)
[2018-04-16] MEDS ORDERED: MAGNESIUM SULFATE PMX 2GM/50ML 50 ML IV ONE (13:30)
[2018-04-16] MEDS ORDERED: DEXAMETHASONE 4 MG/ML, 5ML ONE (13:51)
[2018-04-16] MEDS ORDERED: LIDOCAINE-MPF 1%, 5ML ONE (14:08)
[2018-04-16 15:36] LABS: GLUCOSE, CSF 61 mg/dL (40-80); TOTAL PROTEIN,CSF 45 mg/dL (15-45)
[2018-04-16] MEDS ORDERED: KETOROLAC 30 MG/1 ML IVPush ONE (16:30)
[2018-04-16] MEDS ORDERED: PROMETHAZINE 25 MG/ML, 1ML IM ONE (16:30)
[2018-04-16] MEDS ORDERED: PROMETHAZINE 25 MG/ML, 1ML ONE (17:02)
[2018-04-16] MEDS ORDERED: KETOROLAC 30 MG/1 ML ONE (17:02)
[2018-04-16 18:26] VITALS: BP 119/63
== END 2018-04-16 18:28 | disposition home or self-care (01) ==
LOC: ED 13:39
DX: Z79.82 Long term (current) use of aspirin (principal); Z88.5 Allergy status to narcotic agent
CPT/HCPCS: 36415; 62270; 70450; 80053; 82945; 84157; 85025; 85610; 85730; 89051; 96365; 96366; 96372; 96375; 99285; J1100; J1885; J2550; J2765; J3475

== ENCOUNTER 2018-04-21 16:07 | Emergency (ER) | payer BC, OTHER ==
[~2018-04-21] VITALS: Ht 170.2 cm; Wt 93.0 kg
[2018-04-21 16:20] VITALS: BP 137/83
== END 2018-04-21 18:22 | disposition home or self-care (01) ==
LOC: ED 18:15
DX: G62.9 Polyneuropathy, unspecified (principal); S61.217D Laceration without foreign body of left little finger without damage to nail, subsequent encounter; X58.XXXD Exposure to other specified factors, subsequent encounter
CPT/HCPCS: 99284

== ENCOUNTER 2018-04-25 21:40 | Emergency (ER) | payer OTHER ==
[~2018-04-25] VITALS: Ht 170.2 cm; Wt 92.5 kg
[2018-04-25 21:43] VITALS: BP 155/109
[2018-04-25] MEDS ORDERED: METOCLOPRAMIDE 10MG TABLET PO ONE (22:30)
[2018-04-25] MEDS ORDERED: DEXAMETHASONE 4 MG TABLET PO ONE (22:30)
[2018-04-25] MEDS ORDERED: DIPHENHYDRAMINE 25 MG CAPSULE PO ONE (22:30)
[2018-04-25] MEDS ORDERED: KETOROLAC 30 MG/1 ML IM ONE (22:30)
[2018-04-25] MEDS ORDERED: DIPHENHYDRAMINE 25 MG CAPSULE ONE (23:01)
[2018-04-25] MEDS ORDERED: METOCLOPRAMIDE 10MG TABLET ONE (23:01)
[2018-04-25] MEDS ORDERED: KETOROLAC 30 MG/1 ML ONE (23:01)
[2018-04-25] MEDS ORDERED: DEXAMETHASONE 4 MG TABLET ONE (23:01)
== END 2018-04-26 01:02 | disposition home or self-care (01) ==
LOC: ED 22:53
DX: R51 Headache (principal); G62.9 Polyneuropathy, unspecified
CPT/HCPCS: 93005; 96372; 99284; J1885; Q0163

== ENCOUNTER 2018-05-13 17:43 | Emergency (ER) | payer BC, OTHER ==
[~2018-05-13] VITALS: Ht 170.2 cm; Wt 91.2 kg
[2018-05-13] MEDS ORDERED: PROMETHAZINE 25 MG/ML, 1ML IM ONE (18:30)
[2018-05-13] MEDS ORDERED: MORPHINE SULFATE 4 MG/ML, 1ML IVPush PRN (18:30)
[2018-05-13] MEDS ORDERED: LEVE100020 PO (18:36)
[2018-05-13] MEDS ORDERED: DIVA500T2 PO (18:38)
[2018-05-13] MEDS ORDERED: MORPHINE SULFATE 4 MG/ML, 1ML ONE (18:52)
[2018-05-13] MEDS ORDERED: PROMETHAZINE 25 MG/ML, 1ML ONE (18:52)
[2018-05-13 19:02] LABS: BASOPHILS # (AUTO) 0.03 x10^3/uL (0-0.1); BASOPHILS % (AUTO) 1 % (0-1); EOSINOPHILS # (AUTO) 0.06 x10^3/uL (0-0.4); EOSINOPHILS % (AUTO) 1 % (1-7); LYMPHOCYTES # (AUTO) 1.11 x10^3/uL (1-3.4); LYMPHOCYTES % (AUTO) 21 % (22-44); MD NO; MEAN CORPUSCULAR HEMOGLOBIN 29.9 pg (27.5-34.5); MEAN CORPUSCULAR HGB CONC 33.9 g/dL (33.2-36.2); MEAN CORPUSCULAR VOLUME 88.2 fL (81-97); MEAN PLATELET VOLUME 7.6 fL (7.4-10.4); MONOCYTES # (AUTO) 0.37 x10^3/uL (0.2-0.8); MONOCYTES % (AUTO) 7 % (2-9); NEUTROPHILS # (AUTO) 3.73 x10^3/uL (1.8-6.8); NEUTROPHILS % (AUTO) 71 % (42-75); PLATELET COUNT 215 x10^3/uL (130-400); RED BLOOD COUNT 5.37 x10^6/uL (4.38-5.82); RED CELL DISTRIBUTION WIDTH 13.4 % (9.4-14.8)
[2018-05-13 19:11] LABS: ANION GAP 8 mmol/L (5-15); CALCIUM 8.9 mg/dL (8.5-10.1); CHLORIDE 110 mmol/L (98-107); CREATININE 1.05 mg/dL (0.7-1.3)
[2018-05-13 19:12] LABS: ALANINE AMINOTRANSFERASE 22 U/L (12-78); ALBUMIN 3.8 g/dL (3.4-5.0)
[2018-05-13 19:14] LABS: ALKALINE PHOSPHATASE 87 U/L (45-117); BILIRUBIN,TOTAL 0.6 mg/dL (0.2-1.0); TOTAL PROTEIN 8.2 g/dL (6.4-8.2)
[2018-05-13] MEDS ORDERED: methylPREDNISolone SOD SUCC 125 MG/2 ML ONE (19:43)
[2018-05-13 19:49] VITALS: BP 112/72
[2018-05-13] MEDS ORDERED: methylPREDNISolone SOD SUCC 125 MG/2 ML IVPush ONE (20:00)
== END 2018-05-13 20:01 | disposition home or self-care (01) ==
LOC: ED 19:50
DX: K51.919 Ulcerative colitis, unspecified with unspecified complications (principal); G62.9 Polyneuropathy, unspecified
CPT/HCPCS: 36415; 80053; 83690; 85025; 96372; 96374; 96375; 99283; J2550; J2930

== ENCOUNTER 2018-06-03 10:52 | Emergency (ER) | payer BC, OTHER ==
[~2018-06-03] VITALS: Ht 170.2 cm; Wt 90.3 kg
[~2018-06-03 10:52] MED LIST changes: +DIVA500T2 PO; +LEVE100020 PO
[2018-06-03 11:05] VITALS: BP 133/88
[2018-06-03] MEDS ORDERED: ONDANSETRON ODT 8 MG PO ONE (11:30)
[2018-06-03] MEDS ORDERED: DIAZEPAM 5 MG/ML, 2ML IM ONE (11:30)
[2018-06-03] MEDS ORDERED: ONDANSETRON ODT 8 MG ONE (11:43)
== END 2018-06-03 13:06 | disposition home or self-care (01) ==
LOC: ED 12:08
DX: R10.9 Unspecified abdominal pain (principal); R11.2 Nausea with vomiting, unspecified; Z90.49 Acquired absence of other specified parts of digestive tract; Z88.6 Allergy status to analgesic agent; Z88.5 Allergy status to narcotic agent
CPT/HCPCS: 96372; 99283; J3360; Q0162

== ENCOUNTER 2018-09-06 12:51 | Emergency (ER) | payer MEDICAID ==
[~2018-09-06] VITALS: Ht 170.2 cm; Wt 207.8 kg
[2018-09-06 14:04] LABS: BASOPHILS # (AUTO) 0.04 x10^3/uL (0-0.1); BASOPHILS % (AUTO) 1 % (0-1); EOSINOPHILS # (AUTO) 0.16 x10^3/uL (0-0.4); EOSINOPHILS % (AUTO) 3 % (1-7); LYMPHOCYTES # (AUTO) 1.09 x10^3/uL (1-3.4); LYMPHOCYTES % (AUTO) 17 % (22-44); MD NO; MEAN CORPUSCULAR HEMOGLOBIN 29.8 pg (27.5-34.5); MEAN CORPUSCULAR HGB CONC 33.7 g/dL (33.2-36.2); MEAN CORPUSCULAR VOLUME 88.2 fL (81-97); MEAN PLATELET VOLUME 7.7 fL (7.4-10.4); MONOCYTES # (AUTO) 0.55 x10^3/uL (0.2-0.8); MONOCYTES % (AUTO) 9 % (2-9); NEUTROPHILS # (AUTO) 4.55 x10^3/uL (1.8-6.8); NEUTROPHILS % (AUTO) 71 % (42-75); PLATELET COUNT 204 x10^3/uL (130-400); RED BLOOD COUNT 5.13 x10^6/uL (4.38-5.82)
[2018-09-06 14:17] LABS: ALANINE AMINOTRANSFERASE 39 U/L (12-78); ALBUMIN 3.9 g/dL (3.4-5.0); ANION GAP 5 mmol/L (5-15); CHLORIDE 109 mmol/L (98-107)
[2018-09-06 14:19] LABS: ALKALINE PHOSPHATASE 104 U/L (45-117); BILIRUBIN,TOTAL 0.4 mg/dL (0.2-1.0); TOTAL PROTEIN 8.1 g/dL (6.4-8.2)
--- NOTE | 2018-09-06 16:15 | NUR ---
ENTERED PT ROOM AND PT STATED "I'VE BEEN IN HERE FOR AN HOUR AND A HALF, IS ANYONE EVER GOING TO COME SEE ME, I'M REALLY FRUSTRATED, THIS IS BULLSHIT", PT INSTRUCTED HE WAS JUST BROUGHT TO ROOM 35 MIN AGO AND PROVIDER NEEDED URINE SAMPLE. LABS DRAWN AND US ORDERED, AWAITING RESULTS. NOTIFIED PROVIDER PT WOULD LIKE TO BE SEEN BY
[2018-09-06 16:48] LABS: MICROSCOPIC NOT IND
[2018-09-06] MEDS ORDERED: ONDANSETRON ODT 4 MG ONE (16:53)
[2018-09-06] MEDS ORDERED: MAALOX/HYOSCYAMINE/LIDOCAINE 45 ML BTL ONE (16:53)
[2018-09-06] MEDS ORDERED: ONDANSETRON ODT 4 MG PO ONE (17:00)
[2018-09-06] MEDS ORDERED: MAALOX/HYOSCYAMINE/LIDOCAINE 45 ML BTL PO ONE (17:00)
[2018-09-06 17:05] LABS: CULTURE INDICATED? NO
[2018-09-06 18:01] VITALS: BP 113/69
== END 2018-09-06 18:03 | disposition home or self-care (01) ==
LOC: ED 17:18
DX: K29.00 Acute gastritis without bleeding (principal); F43.10 Post-traumatic stress disorder, unspecified; Z90.49 Acquired absence of other specified parts of digestive tract; Z90.89 Acquired absence of other organs; Z87.19 Personal history of other diseases of the digestive system
CPT/HCPCS: 36415; 71045; 76700; 80053; 81003; 83690; 85025; 99284; Q0162

== ENCOUNTER 2018-12-06 09:27 | Emergency (ER) | payer MEDICAID ==
[~2018-12-06] VITALS: Ht 170.2 cm; Wt 94.8 kg
--- NOTE | 2018-12-06 10:12 | NUR ---
PT C/O N/V/D FOR 10 DAYS WITH BLOOD IN THE STOOL. PT HAS HX OF DIVERTICULITIS AND THIS FEELS THE SAME PER THE PT. PT REPORTS NOT EATING FOR DAYS. PT SEEN BY MEDICAL STUDENT. WAITING FOR ORDERS.
[2018-12-06] MEDS ORDERED: ONDANSETRON 2MG/ML, 2ML IVPush ONE (10:30)
[2018-12-06] MEDS ORDERED: SODIUM CHLORIDE FLUSH 10ML SYR IVF ONE (10:30)
[2018-12-06] MEDS ORDERED: ONDANSETRON 2MG/ML, 2ML ONE (10:39)
[2018-12-06] MEDS ORDERED: MORPHINE SULFATE 4 MG/ML, 1ML ONE ×2 (10:40→11:55)
[2018-12-06] MEDS: MORPHINE SULFATE 4 MG/ML, 1ML IVPush PRN ×2 (10:41→11:58)
--- NOTE | 2018-12-06 10:44 | NUR ---
IV STARTED AND PT MEDICATED ORDERED. VSS.
[2018-12-06 10:48] LABS: BASOPHILS # (AUTO) 0.05 x10^3/uL (0-0.1); BASOPHILS % (AUTO) 1 % (0-1); EOSINOPHILS # (AUTO) 0.06 x10^3/uL (0-0.4); EOSINOPHILS % (AUTO) 1 % (1-7); LYMPHOCYTES # (AUTO) 1.11 x10^3/uL (1-3.4); LYMPHOCYTES % (AUTO) 21 % (22-44); MD NO; MEAN CORPUSCULAR HEMOGLOBIN 29.7 pg (27.5-34.5); MEAN CORPUSCULAR HGB CONC 33.1 g/dL (33.2-36.2); MEAN CORPUSCULAR VOLUME 89.6 fL (81-97); MEAN PLATELET VOLUME 7.4 fL (7.4-10.4); MONOCYTES # (AUTO) 0.41 x10^3/uL (0.2-0.8); MONOCYTES % (AUTO) 8 % (2-9); NEUTROPHILS # (AUTO) 3.67 x10^3/uL (1.8-6.8); NEUTROPHILS % (AUTO) 69 % (42-75); PLATELET COUNT 207 x10^3/uL (130-400); RED BLOOD COUNT 4.61 x10^6/uL (4.38-5.82); RED CELL DISTRIBUTION WIDTH 13.6 % (9.4-14.8)
[2018-12-06 11:00] LABS: ALANINE AMINOTRANSFERASE 35 U/L (12-78); ALBUMIN 3.9 g/dL (3.4-5.0); ANION GAP 7 mmol/L (5-15); CALCIUM 8.6 mg/dL (8.5-10.1); CHLORIDE 109 mmol/L (98-107); CREATININE 0.85 mg/dL (0.7-1.3)
[2018-12-06 11:02] LABS: ALKALINE PHOSPHATASE 90 U/L (45-117); BILIRUBIN,TOTAL 0.4 mg/dL (0.2-1.0); TOTAL PROTEIN 7.4 g/dL (6.4-8.2)
[2018-12-06] MEDS ORDERED: OMNIPAQUE 350 MG/ML, 100ML BOTTLE ONE (11:42)
--- NOTE | 2018-12-06 11:59 | NUR ---
PT REMEDICATED FOR PAIN. VSS. UA SENT.
[2018-12-06 12:15] LABS: MICROSCOPIC NOT IND
[2018-12-06 12:22] LABS: CULTURE INDICATED? NO
[2018-12-06] MEDS ORDERED: methylPREDNISolone SOD SUCC 125 MG/2 ML IVPush ONE (12:30)
[2018-12-06] MEDS ORDERED: methylPREDNISolone SOD SUCC 125 MG/2 ML ONE (12:35)
[2018-12-06 13:02] VITALS: BP 111/70
== END 2018-12-06 13:04 | disposition home or self-care (01) ==
LOC: ED 11:47
DX: R10.32 Left lower quadrant pain (principal); R10.31 Right lower quadrant pain; R10.30 Lower abdominal pain, unspecified
CPT/HCPCS: 36415; 74177; 80053; 81003; 83690; 85025; 96374; 96375; 96376; 99284; J2270; J2405; J2930; Q9967

== ENCOUNTER 2019-04-11 19:25 | Emergency (ER) | payer MEDICAID ==
[~2019-04-11] VITALS: Ht 170.2 cm; Wt 98.6 kg
[~2019-04-11 19:25] MED LIST changes: -IBUP-1484 PO; +IBUP-1902 PO
[2019-04-11 20:08] LABS: BASOPHILS # (AUTO) 0.08 x10^3/uL (0-0.1); BASOPHILS % (AUTO) 1 % (0-1); EOSINOPHILS # (AUTO) 0.08 x10^3/uL (0-0.4); EOSINOPHILS % (AUTO) 1 % (1-7); LYMPHOCYTES # (AUTO) 1.69 x10^3/uL (1-3.4); LYMPHOCYTES % (AUTO) 24 % (22-44); MD NO; MEAN CORPUSCULAR HEMOGLOBIN 30.7 pg (27.5-34.5); MEAN CORPUSCULAR HGB CONC 33.7 g/dL (33.2-36.2); MEAN CORPUSCULAR VOLUME 91.1 fL (81-97); MEAN PLATELET VOLUME 6.8 fL (7.4-10.4); MONOCYTES # (AUTO) 0.72 x10^3/uL (0.2-0.8); MONOCYTES % (AUTO) 10 % (2-9); NEUTROPHILS # (AUTO) 4.53 x10^3/uL (1.8-6.8); NEUTROPHILS % (AUTO) 64 % (42-75); PLATELET COUNT 240 x10^3/uL (130-400); RED CELL DISTRIBUTION WIDTH 13.1 % (9.4-14.8)
[2019-04-11 20:16] LABS: ANION GAP 6 mmol/L (5-15); CALCIUM 8.5 mg/dL (8.5-10.1); CHLORIDE 108 mmol/L (98-107); CREATININE 0.96 mg/dL (0.7-1.3)
[2019-04-11] MEDS ORDERED: HYDROmorphone 2 MG/ML, 1ML ONE (20:20)
[2019-04-11] MEDS ORDERED: CEFAZOLIN 1,000 MG IM ONE (20:30)
[2019-04-11] MEDS ORDERED: HYDROmorphone 1 MG/ML, 1ML INJ IM ONE (20:30)
--- NOTE | 2019-04-11 20:35 | NUR ---
patient given pain medications, tolerated well. no noted acute distress. patient tolerating interventions well. patient verbalized understanding of medication given, placed on monitor to ensure patient safety with medication dosage.
[2019-04-11] MEDS ORDERED: CEFAZOLIN 1,000 MG ONE (20:42)
--- NOTE | 2019-04-11 21:46 | NUR ---
patient has been cleared for discharge. no noted signs of antibiotic reactions, no acute distress. patient ambulatory without complications.
[2019-04-11 21:47] VITALS: BP 135/76
== END 2019-04-11 21:48 ==
LOC: ED 21:42
DX: S61.217D Laceration without foreign body of left little finger without damage to nail, subsequent encounter (principal); X58.XXXD Exposure to other specified factors, subsequent encounter
CPT/HCPCS: 36415; 73130; 80048; 85025; 96372; 99284; J0690; J1170